=== PATIENT | male | born 1995 | race Two or more races ===

== ENCOUNTER 2017-03-25 06:41 | Day surgery (SDC) | payer OTHER ==
[2017-03-25] MEDS ORDERED: BUPIVACAINE HCL 0.5%-EPI 1:200000 INJ/PF 30 ML VIAL ONE (07:12)
--- NOTE | 2017-03-27 09:33 | SURGICARE OPERATIVE REPORT E ---
[facility] Operative Report NAME: MAIKEL NEELY AGE: 21Y DATE OF SURGERY: 03/25/2017 ROOM: PREOPERATIVE DIAGNOSES: 1. Tonsillar hypertrophy. 2. Tonsillitis. POSTOPERATIVE DIAGNOSES: 1. Tonsillar hypertrophy. 2. Tonsillitis. OPERATION PERFORMED: Tonsillectomy bilateral. SURGEON: ANA LILIA ANTHONY D.O. ANESTHESIA: General endotracheal tube. ANESTHESIA STAFF: MONICA Vaughan ESTIMATED BLOOD LOSS: 5 mL. FLUIDS: 700 mL. COMPLICATIONS: None. DRAINS: None. COUNTS: Sponge count verified. MATERIAL FORWARDED SPECIMEN: Left and right tonsillar tissue sent as rule out lymphoma protocol. FINDINGS: 1. The left tonsils was noted to be greater than 3+ in size, and was cryptic in nature with debris present. 2. The right tonsil was noted to be greater than 2+ in size, was cryptic in nature, and was with tonsillar debris present. 3. The soft palatal tissues were redundant in nature and the uvula was unremarkable in appearance. 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 The patient had been referred for a request for rule out of a left peritonsillar abscess. The patient had been experiencing 2-3 weeks of persistent and worsening sore throat and discomfort. The patient had been put on 2 courses of antibiotics with no change in his symptoms. The patient along with experience of significant sore throat discomfort was with decreased p.o. intake. On clinic evaluation, the patient did not have findings concerning for a peritonsillar abscess process. However, the patient had concerning tonsil asymmetry on the left especially. After extensive discussion with the patient, recommendation and plan was made to proceed with a tonsillectomy with rule out of tonsil lymphoma. The patient voiced an understanding of the described surgical plan, agreed to proceed, and consent was obtained. PROCEDURE: The patient was taken to the main operating room and placed on the operating room table in the supine position. Appropriate monitors were placed. Using mask and IV access, general anesthesia was induced. The patient was next transorally intubated without difficulty. The patient was rotated 90 degrees and positioned for tonsil surgery. The patient's lips, teeth, tongue and inside of the mouth were inspected and noted to be without defects. There was a mouth gag inserted. It was opened, and the patient was placed into suspension. There was a soft catheter placed through the patient's nose that was used to suspend the soft palate. Findings are as noted above. At this point, the plasma knife was used to dissect and remove tonsillar tissue on each side. This device was also used to provide adequate hemostasis. Saline irritation was performed and suctioned. There was adequate hemostasis noted. The soft catheter was next released and removed from the patient's nose. The mouth gag was removed from the patient's mouth without difficulty. There was no damage to the lips, teeth, tongue, gums, or inside of the mouth. The patient was then returned to the anesthesia staff and was allowed to emerge from general anesthesia. The patient was extubated in the main operating room and was then transported to the post-anesthesia recovery unit in stable condition. There were no complications. DICTATING PHYSICIAN: ANA LILIA ANTHONY D.O. [id number] PHY#: [id number] ID: [id number] JOB#: [id number] ACCT: [id number] cc:ANA LILIA ANTHONY D.O. >
== END 2017-03-25 09:34 | disposition home or self-care (01) ==
LOC: SC 06:41
PROVIDERS: ATTEND Otolaryngology
PROC: 0CTPXZZ Resection of Tonsils, External Approach (ICD-10-PCS; principal; 2017-03-25 07:30)
DX: J35.1 Hypertrophy of tonsils (principal); Z79.1 Long term (current) use of non-steroidal anti-inflammatories (NSAID); F17.290 Nicotine dependence, other tobacco product, uncomplicated
CPT/HCPCS: 88185 ×15; 88184; 88233; 88262; 88304 ×2; 42826; J3490; 170